=== PATIENT | female | born 1970 | race Two or more races ===

== ENCOUNTER 2019-07-02 12:59 | Inpatient (IN) | payer MEDICARE ==
[~2019-07-02] VITALS: Ht 162.6 cm; Wt 72.6 kg
--- NOTE | 2019-07-02 17:00 | NUR ---
Dr. Sanchez and Dr. Mensah notifed of admission
[2019-07-02] MEDS ORDERED: BLOOD SUGAR DIAGNOSTIC 1 EACH STRIP IN ONE (17:30)
[2019-07-02] MEDS ORDERED: MAGNESIUM HYDROXIDE 30 ML UDC PO PRN (17:30)
[2019-07-02] MEDS ORDERED: MAG HYDROX/AL HYDROX/SIMETH 30 ML UDC PO PRN (17:30)
[2019-07-02] MEDS ORDERED: ACETAMINOPHEN 325 MG TABLET PO PRN (17:30)
[2019-07-02] MEDS ORDERED: QUET400T PO (17:51)
[2019-07-02] MEDS ORDERED: DIVA500T2 GT (17:51)
[2019-07-02] MEDS ORDERED: CLON1TAB PO (17:51)
[2019-07-02] MEDS ORDERED: BENZ2AMP3 PO (17:51)
[2019-07-02] MEDS ORDERED: LISI10TA5 PO (17:51)
[2019-07-02] MEDS ORDERED: ARIP30TA3 PO (17:51)
[2019-07-02] MEDS ORDERED: LITH600C PO (17:51)
[2019-07-02] MEDS ORDERED: CARB-93 PO (17:51)
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
[2019-07-02 20:50] VITALS: BP 114/55
[2019-07-03 07:30] LABS: ALBUMIN 3.5 g/dL (3.4-5.0); BILIRUBIN,TOTAL 0.2 mg/dL (0.2-1.0); CALCIUM, SERUM 8.6 mg/dL (8.5-10.1); CHOLESTEROL 162 mg/dL (<200); CREATININE 0.6 mg/dL (0.6-1.3); HDL CHOLESTEROL 62 mg/dL (40-60); LDL 77 mg/dL (0-99); TOTAL PROTEIN, SERUM 6.9 g/dL (6.4-8.2); TRIGLYCERIDES 178 mg/dL (30-150)
[2019-07-03 08:00] VITALS: BP 146/82
[2019-07-03] MEDS: CARBIDOPA/LEVODOPA 25/100 MG 1 UDTAB PO SCH ×3 (08:05→16:27)
[2019-07-03] MEDS: LISINOPRIL (10MG) 10 MG TABLET PO SCH (08:06)
[2019-07-03] MEDS: DIVALPROEX SODIUM 250 MG TABLET.DR PO SCH ×2 (12:29→21:39)
[2019-07-03] MEDS: OLANZAPINE 5 MG/TAB.RAPDIS PO SCH ×2 (12:29→21:37)
[2019-07-03 16:00] VITALS: BP 117/65
--- NOTE | 2019-07-03 19:08 | NUR ---
GPS/RN NOTE: RESTING IN BED, CALM, QUIET, COOPERATIVE. DENIES ANY PAIN AT THIS TIME. NO ACUTE DISTRES NOTED. FALL RISK MEASURES MAINTAINED, MOSTLY INDEPENDENT WITH ADL'S. CONTINUE TO MONITOR.
--- NOTE | 2019-07-03 19:52 | NUR ---
GPS/RN NOTE: URINE SAMPLE COLLECTED FOR TEST, LAB WAS NOTIFIED.
[2019-07-03 20:28] VITALS: BP 138/89
[2019-07-03] MEDS: GEMFIBROZIL 600 MG TABLET PO SCH (21:37)
[2019-07-04] MEDS: TEMAZEPAM 7.5 MG CAPSULE PO PRN ×2 (03:06→22:13)
--- NOTE | 2019-07-04 03:06 | NUR ---
GPS/RN NOTE: AWAKE AND NOT SLEEPING, OFFERED SLEEPING PILL EARLIER BUT REFUSED. TEMAZEPAM 7.5 MG CAP PO GIVEN.
--- NOTE | 2019-07-04 03:28 | NUR ---
GPS/RN NOTE: CHECKED URINE TEST FOR , STILL PENDING.
--- NOTE | 2019-07-04 07:30 | NUR ---
Opening PATIENT IS A 49 YEAR OLD FEMALE ON A 5150 HOLD FOR DTO, DTS AND GD. Pt CURRENTLY WONDERING HALLS UP AND BACK TO NURSES STATION. PT ASKING TO TAKE A SHOWER FOR SELF CARE IN [facility]. ON FACE TO FACE ASSESSMENT PATIENT IS AOX2 FOR SELF AND TIME. PATIENT DENIES SI/HI AND VAH. PATIENT IS CALM AND COOPERATIVE WITH STAFF. PATIENT IS DISORIENTED AND FORGETFUL. PNO SIGNS OF DISTRESS. RISSA CONTINUE TO MONITOR.
[2019-07-04] MEDS: LORAZEPAM 0.5 MG TABLET PO PRN (07:44)
[2019-07-04] MEDS: DIVALPROEX SODIUM 250 MG TABLET.DR PO SCH ×3 (07:45→22:09)
[2019-07-04] MEDS: GEMFIBROZIL 600 MG TABLET PO SCH ×2 (07:45→20:40)
[2019-07-04] MEDS: CARBIDOPA/LEVODOPA 25/100 MG 1 UDTAB PO SCH ×3 (07:45→17:17)
[2019-07-04] MEDS: OLANZAPINE 5 MG/TAB.RAPDIS PO SCH ×2 (07:45→20:40)
[2019-07-04] MEDS: LISINOPRIL (10MG) 10 MG TABLET PO SCH (07:46)
[2019-07-04 08:00] VITALS: BP 141/74
[2019-07-04] MEDS ORDERED: OLANZAPINE 10 MG VIAL IM ONE (12:30)
--- NOTE | 2019-07-04 12:32 | NUR ---
GPS/RN ZYPREXA 10MG IN ONCE ORDERED BY DR WANG FOR PT BEING AGGRESSIVE TOWARD NURSING STUFF.
--- NOTE | 2019-07-04 13:03 | NUR ---
hanane alva cna communicated to md packer im medication ordered and given.
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
--- NOTE | 2019-07-04 17:38 | NUR ---
Initial Discharge Plan: Pt currently resides with a friend of hers but the address is unknown. Pts Farrah robles ([phone]), stated that her address is available for the pt. SW will work with the pt and the MD regarding appropriate discharge planning. SW will form a safe and proper discharge.
--- NOTE | 2019-07-04 17:51 | NUR ---
CLOSING PT COOPERATIVE ALL SHIFT KEEP SAFE ALL MEDICATIONS GIVEN WILL GIVE REPORT TO PM SHIFT RN FOR CONTINUITY OF CARE
--- NOTE | 2019-07-04 20:06 | NUR ---
GPS/RN NOTE: AMBULATING AROUND THE UNIT, IN AND OUT OF HER ROOM, UNKEMPT, DISHEVELED, A/O X2, AMBULATORY/STEADY GAIT.LABILE, HYPERVERBAL.COOPERATIVE, MED COMPLIANT. WILL CONTINUE TO MONITOR PATIENT.
[2019-07-04 20:12] VITALS: BP 111/60
--- NOTE | 2019-07-04 22:13 | NUR ---
GPS/RN NOTE: RESTORIL 7.5 MG CAP PO GIVEN FOR SLEEP.
[2019-07-05] MEDS: LORAZEPAM 0.5 MG TABLET PO PRN (05:49)
--- NOTE | 2019-07-05 05:49 | NUR ---
GPS/RN NOTE: REQUESTED FOR ATIVAN FOR ANXIETY, ATIVAN 0.5 MG TAB PO GIVEN.
--- NOTE | 2019-07-05 06:50 | NUR ---
GPS/RN END OF SHIFT NOTE: SLEPT FOR 7 HOURS. A/O X2, NO AGITATION, NO HITTING AF ANY KIND. MED COMPLIANT. AMBULATORY. WILL CONTINUE TO MONITOR.
[2019-07-05 08:00] VITALS: BP 107/63
--- NOTE | 2019-07-05 08:42 | NUR ---
opening PATIENT IS A 49 YEAR OLD FEMALE ON A 5150 HOLD FOR DTO, DTS AND GD. Pt CURRENTLY WONDERING HALLS UP AND BACK TO NURSES STATION. PT ASKING TO TAKE A SHOWER FOR SELF CARE IN [facility]. ON FACE TO FACE ASSESSMENT PATIENT IS AOX2 FOR SELF AND TIME. PATIENT DENIES SI/HI PATIENT IS pacing around door way but COOPERATIVE WITH STAFF. PATIENT IS DISORIENTED AND FORGETFUL. SIGNS OF DISTRESS. RISSA CONTINUE TO MONITOR.
[2019-07-05] MEDS: GEMFIBROZIL 600 MG TABLET PO SCH ×2 (09:18→21:14)
[2019-07-05] MEDS: DIVALPROEX SODIUM 250 MG TABLET.DR PO SCH ×4 (09:18→21:14)
[2019-07-05] MEDS: CARBIDOPA/LEVODOPA 25/100 MG 1 UDTAB PO SCH ×3 (09:19→17:28)
[2019-07-05] MEDS: OLANZAPINE 5 MG/TAB.RAPDIS PO SCH ×2 (09:19→13:04)
[2019-07-05] MEDS: LISINOPRIL (10MG) 10 MG TABLET PO SCH (09:19)
[2019-07-05 16:00] VITALS: BP 100/65
[2019-07-05] MEDS: OLANZAPINE 10 MG TABLET PO SCH (17:28)
--- NOTE | 2019-07-05 17:46 | NUR ---
CLOSING PT COOPERATIVE ALL SHIFT KEEP SAFE ALL MEDICATIONS GIVEN WILL GIVE REPORT TO PM SHIFT RN FOR CONTINUITY OF CARE
[2019-07-05 20:19] VITALS: BP 105/66
[2019-07-06] MEDS: TEMAZEPAM 7.5 MG CAPSULE PO PRN (01:44)
[2019-07-06] MEDS: LORAZEPAM 0.5 MG TABLET PO PRN ×2 (05:13→17:02)
--- NOTE | 2019-07-06 05:15 | NUR ---
RN NOTES: PT. C/O FEELING ANXIOUS ATIVAN 0.5 MG PO PRN GIVEN PER PT. REQUEST,WILL CONTINUE TO MONITOR, / IN OMNICELL ATIVAN FOUND 19 QTY / BY LILLIE ENTER 1 , / NOTIFIED CHARGE NURSE AND CYCLE COUNT DONE ,RESLOVED DISCRAPENCY WITH MADONNA CHARGE NURSE
--- NOTE | 2019-07-06 07:37 | NUR ---
RN NOTES: PT. TOOK MEDS FOR 07 , HALODOL 5 MG , COGENTIN 1 MG, ENDORSE TO CHARGE NURSE, WILL CONTINUITY WITH CARE . Addendum: 07/06/19 at 0741 by KILO JENKINS RN WRONG PATIENT
[2019-07-06 08:00] VITALS: BP 135/79
[2019-07-06] MEDS: LISINOPRIL (10MG) 10 MG TABLET PO SCH (09:30)
[2019-07-06] MEDS: DIVALPROEX SODIUM 250 MG TABLET.DR PO SCH ×4 (09:30→21:09)
[2019-07-06] MEDS: OLANZAPINE 5 MG/TAB.RAPDIS PO SCH ×2 (09:30→13:51)
[2019-07-06] MEDS: GEMFIBROZIL 600 MG TABLET PO SCH ×2 (09:30→21:09)
[2019-07-06] MEDS: CARBIDOPA/LEVODOPA 25/100 MG 1 UDTAB PO SCH ×3 (09:30→17:02)
[2019-07-06 16:00] VITALS: BP 127/58
[2019-07-06] MEDS: OLANZAPINE 10 MG TABLET PO SCH (17:02)
[2019-07-06 20:00] VITALS: BP 108/65
--- NOTE | 2019-07-07 06:24 | NUR ---
RN NOTES: PT. REFUSED AM LABS ,ENCOURAGED X3 , PT. STRONGLY REFUSED, ENDORSE TO ON COMING RN, WILL CONTINUITY WITH CARE.
[2019-07-07 06:53] VITALS: BP 108/65
[2019-07-07] MEDS: LORAZEPAM 0.5 MG TABLET PO PRN ×2 (07:25→19:30)
[2019-07-07 08:00] VITALS: BP 124/70
--- NOTE | 2019-07-07 08:42 | NUR ---
FAMILY CONTACT: SW called the pts daughter, Farrah ([phone]) and left a voicemail for callback.
[2019-07-07] MEDS: OLANZAPINE 5 MG/TAB.RAPDIS PO SCH ×2 (09:03→12:33)
[2019-07-07] MEDS: LISINOPRIL (10MG) 10 MG TABLET PO SCH (09:03)
[2019-07-07] MEDS: CARBIDOPA/LEVODOPA 25/100 MG 1 UDTAB PO SCH ×3 (09:04→16:57)
[2019-07-07] MEDS: GEMFIBROZIL 600 MG TABLET PO SCH ×2 (09:04→21:17)
[2019-07-07] MEDS: DIVALPROEX SODIUM 250 MG TABLET.DR PO SCH ×4 (09:04→21:16)
--- NOTE | 2019-07-07 11:00 | NUR ---
gps anesthesiology faculty: notes pt still refuses blood drawn today x3.
--- NOTE | 2019-07-07 15:00 | NUR ---
GROUP NOTE: SW assessed pts ability to participate in group therapy on this present day discussing "discharge planing." Pt is unable to participate due to Cognitive Disorder. Pt is confused, disorganized, easily irritable, and agitated, and verbally aggressive. Pt unable to sit in a group setting and follow directions.
[2019-07-07 16:00] VITALS: BP 122/75
[2019-07-07] MEDS: OLANZAPINE 10 MG TABLET PO SCH (16:57)
[2019-07-07 20:25] VITALS: BP 118/71
[2019-07-08] MEDS: TEMAZEPAM 7.5 MG CAPSULE PO PRN ×2 (00:59→22:59)
[2019-07-08 08:00] VITALS: BP 108/64
[2019-07-08] MEDS: OLANZAPINE 5 MG/TAB.RAPDIS PO SCH ×2 (08:38→12:46)
[2019-07-08] MEDS: LISINOPRIL (10MG) 10 MG TABLET PO SCH (08:39)
[2019-07-08] MEDS: CARBIDOPA/LEVODOPA 25/100 MG 1 UDTAB PO SCH ×3 (08:39→16:47)
[2019-07-08] MEDS: DIVALPROEX SODIUM 250 MG TABLET.DR PO SCH ×4 (08:39→21:26)
[2019-07-08] MEDS: GEMFIBROZIL 600 MG TABLET PO SCH ×2 (08:39→21:27)
--- NOTE | 2019-07-08 08:41 | NUR ---
DEIDRE/RN NOTES MEDICATION LISINOPRIL WAS NOT GIVEN DUE TO LOW BP OF 105/64. PATIENT CONTINUES TO REMAIN IN STABLE CONDITION. WILL CONTINUE TO MONITOR CLOSELY.
--- NOTE | 2019-07-08 08:59 | NUR ---
FAMILY CONTACT: SW called the pts daughter, Farrah ([phone]) and left a voicemail for callback.
[2019-07-08 16:00] VITALS: BP 133/68
--- NOTE | 2019-07-08 16:08 | NUR ---
Group Note: SW encouraged pt to attend group therapy on 07/08/19 at 12pm discussing discharge planning. Pt was unable to participate in group therapy due to cognitive impairment. Pt appeared to be confused and verbally aggressive. Pt showed at the SW to "leave my room, let me be in here in peace!"
[2019-07-08] MEDS: OLANZAPINE 10 MG TABLET PO SCH (16:47)
--- NOTE | 2019-07-08 18:22 | NUR ---
GPS/RN CLOSING NOTES PATIENT CONTINUES TO REMAIN IN STABLE CONDITION THROUGHOUT THE SHIFT. PROVIDED COMFORT AND SAFETY AT ALL TIMES. COOPERATIVE WITH NO SUICIDAL IDEATION AT THIS TIME. ALL NEEDS ANTICIPATED. CALL LIGHT WITHIN REACHED. BED LOCKED AND IN LOWEST POSITION. WILL CONTINUE TO MONITOR CLOSELY. ENDORSED TO PM NURSE FOR CISCO.
[2019-07-09] MEDS: DIVALPROEX SODIUM 250 MG TABLET.DR PO SCH ×4 (08:13→21:17)
[2019-07-09] MEDS: CARBIDOPA/LEVODOPA 25/100 MG 1 UDTAB PO SCH ×3 (08:13→16:46)
[2019-07-09] MEDS: OLANZAPINE 5 MG/TAB.RAPDIS PO SCH ×2 (08:13→12:42)
[2019-07-09] MEDS: GEMFIBROZIL 600 MG TABLET PO SCH ×2 (08:13→21:17)
[2019-07-09] MEDS: LISINOPRIL (10MG) 10 MG TABLET PO SCH (08:14)
--- NOTE | 2019-07-09 09:03 | NUR ---
SNF REFERRAL: MIS faxed SNF referral to Aishwarya business office coordinator at [facility] Address: [address], [place] [address] for review.
--- NOTE | 2019-07-09 09:05 | NUR ---
FAMILY CONTACT: SW called the pts daughter, Farrah ([phone]) and left a voicemail informing her SW has faxed SNF referral to [facility] and has anticipated discharge date for Sunday07/11/19.
--- NOTE | 2019-07-09 11:20 | NUR ---
SNF; SW received a call from from Aishwarya, complaints coordinator at [facility] Address: [address], [place] [address] stating pt has been accepted to the facility.
[2019-07-09] MEDS: LORAZEPAM 0.5 MG TABLET PO PRN ×2 (15:25→22:45)
--- NOTE | 2019-07-09 15:29 | NUR ---
RN NOTE- PT W ANXIETY. ATIVAN PRN GIVEN AT THIS TIME.
--- NOTE | 2019-07-09 15:45 | NUR ---
GROUP NOTE: SW assessed pts ability to participate in group therapy on this present day discussing "reality testing" Pt is unable to participate due to Cognitive Disorder/psychosis. Pt is confused, disorganized, easily irritable, and agitated. Pt unable to sit in a group setting and follow directions. Pt is pacing the hallway and not easily redirected.
--- NOTE | 2019-07-09 16:30 | NUR ---
RN NOTE- PT W FLAKING, ITCHING SCALP. SEBORRHEA - APPEARING SPOTS TO SCALP. PT STATES ITCHING AND FLAKING. DR GUTIERREZ ORDERED SELENIUM SHAMPOO. COMPLYING.
[2019-07-09] MEDS: OLANZAPINE 10 MG TABLET PO SCH (16:46)
[2019-07-09] MEDS ORDERED: MISCELLANEOUS MED 1 EA EA XX ONE (17:00)
[2019-07-09 20:14] VITALS: BP 104/71
--- NOTE | 2019-07-09 22:47 | NUR ---
GPS RN NOTE PRN ATIVAN 0.5 MG TABLET GIVEN FOR ANXIETY M/B INABILITY TO STAY STILL. WILL CONT. TO MONITOR.
--- NOTE | 2019-07-10 06:56 | NUR ---
GPS RN NOTE PATIENT REFUSED AM LABS DESPITE OF RISKS & BENEFIT EXPLANATIONS, CONTINUED TO REFUSE.
[2019-07-10] MEDS: OLANZAPINE 5 MG/TAB.RAPDIS PO SCH ×2 (08:18→13:16)
[2019-07-10] MEDS: LORAZEPAM 0.5 MG TABLET PO PRN (08:18)
[2019-07-10] MEDS: DIVALPROEX SODIUM 250 MG TABLET.DR PO SCH ×4 (08:18→21:01)
[2019-07-10] MEDS: CARBIDOPA/LEVODOPA 25/100 MG 1 UDTAB PO SCH ×3 (08:18→17:01)
[2019-07-10] MEDS: GEMFIBROZIL 600 MG TABLET PO SCH ×2 (08:19→21:00)
[2019-07-10] MEDS: LISINOPRIL (10MG) 10 MG TABLET PO SCH (08:26)
--- NOTE | 2019-07-10 08:35 | NUR ---
FAMILY CONTACT: SW called the pts daughter, Farrah ([phone]) and left a voicemail cor callback.
--- NOTE | 2019-07-10 08:35 | NUR ---
FAMILY CONTACT: SW received a call from pts daughter, Farrah ([phone]) stating she is pts LPS conservator. SW requested daughter fax conservatorship documents along with the Detain and Treat. Daughter stated that she will email SW the letter of conservatorship. Daughter also asked SW if pt can be placed in a SNF closer to [place] where daughter lives. SW will refer pt to SNF's around her area.
--- NOTE | 2019-07-10 09:10 | NUR ---
LPS CONSERVATORSHIP: SW received letter of conservatorship and SW emailed Detail and Treat to daughter so she can sign and email back.
--- NOTE | 2019-07-10 09:17 | NUR ---
SNF REFERRAL: MIS faxed SNF referral to [facility] Address: [address] [place] [phone] for review.
[2019-07-10] MEDS: SELENIUM SULFIDE TP SCH (13:00)
[2019-07-10 16:00] VITALS: BP 109/73
--- NOTE | 2019-07-10 16:01 | NUR ---
Group Note: SW encouraged pt to attend group therapy on 07/10/19 at 2pm discussing social supports. Pt presented in the hallway pacing and was singing to herself. Pt stated that she did not want to participate in group and stated, "Gisele I just want to sing."
[2019-07-10] MEDS: OLANZAPINE 10 MG TABLET PO SCH (17:01)
[2019-07-10 20:00] VITALS: BP 118/77
[2019-07-10] MEDS: TEMAZEPAM 7.5 MG CAPSULE PO PRN (22:13)
[2019-07-11 08:00] VITALS: BP 100/77
--- NOTE | 2019-07-11 08:30 | NUR ---
SNF CONTACT: SW received a call from corey Gutierrez at [facility] Address: [address] [place] [id number] stating pt has been accepted and has been assigned to room 4B.
[2019-07-11] MEDS: GEMFIBROZIL 600 MG TABLET PO SCH (08:35)
[2019-07-11] MEDS: CARBIDOPA/LEVODOPA 25/100 MG 1 UDTAB PO SCH ×3 (08:36→17:29)
[2019-07-11] MEDS: DIVALPROEX SODIUM 250 MG TABLET.DR PO SCH ×3 (08:36→17:29)
[2019-07-11] MEDS: LORAZEPAM 0.5 MG TABLET PO PRN (08:40)
--- NOTE | 2019-07-11 08:45 | NUR ---
FAMILY CONTACT: SW emailed pts daughter, Farrah ([phone]) to inform her pt has been accepted to [facility] Address: [address] [place] [phone] and will be discharged on this present day. Daughter emailed MIS Detain and Treat and also agreed with discharge plan.
[2019-07-11] MEDS: SELENIUM SULFIDE TP SCH (09:00)
[2019-07-11] MEDS: LISINOPRIL (10MG) 10 MG TABLET PO SCH (09:00)
[2019-07-11] MEDS: OLANZAPINE 5 MG/TAB.RAPDIS PO SCH ×2 (10:24→12:10)
--- NOTE | 2019-07-11 10:43 | NUR ---
DISCHARGE NOTE: Pt will be discharged at 1:30pm via [facility] to [facility] Address: [address] [place] [address] . Pts daughter Farrah ([phone]) has been notified and agrees with discharge plan. Pts mood is labile with congruent affect. Pt denied visual/auditory hallucinations and denied suicidal/homicidal ideation. Pt will be under the care of Psychiatrist: Dr. Sanchez Address: [address] [place] [address] and Filing Or Registry Clerk: Dr Guerrero Address: [address] [address] . The multidisciplinary exit care form was done, printed, signed, and given to the patient.
[2019-07-11 11:32] LABS: BASOPHILS % (AUTO) 0.4 % (0.0-2.0); EOSINOPHILS % (AUTO) 1.2 % (0.0-6.0); HEMATOCRIT 30 % (33-45); LYMPHOCYTES # (AUTO) 3.4 /CMM (0.8-4.8); LYMPHOCYTES % (AUTO) 52.2 % (20.0-44.0); MEAN CORPUSCULAR HGB CONC 33 g/dl (31.0-36.0); MEAN CORPUSCULAR VOLUME 93 fL (82-100); MONOCYTES # (AUTO) 0.5 /CMM (0.1-1.30); MONOCYTES % (AUTO) 7.4 % (2.0-12.0); NEUTROPHILS # (AUTO) 2.5 /CMM (1.8-8.9); NEUTROPHILS % (AUTO) 38.8 % (43.0-81.0); PLATELET COUNT (AUTO) 273 /CMM (150-450); RED BLOOD CELL COUNT(AUTO) 3.25 MIL/uL (4.0-5.2); WHITE BLOOD COUNT (AUTO) 6.5 K/uL (4.3-11.0)
[2019-07-11 11:48] LABS: ALBUMIN 3.4 g/dL (3.4-5.0); BILIRUBIN,TOTAL 0.2 mg/dL (0.2-1.0); CALCIUM, SERUM 8.4 mg/dL (8.5-10.1); CREATININE 0.7 mg/dL (0.6-1.3); TOTAL PROTEIN, SERUM 6.8 g/dL (6.4-8.2)
--- NOTE | 2019-07-11 14:30 | NUR ---
GPS/RN REPORT GIVEN TO ACCEPTING FACILITY CATHI TNOG [phone] /MELLISSA VASQUEZN
--- NOTE | 2019-07-11 14:33 | NUR ---
RN NOTE- CARE TRANSFERRED TO LETTERSET PRESS SET UP OPERATOR
[2019-07-11 16:00] VITALS: BP 108/76
[2019-07-11] MEDS: OLANZAPINE 10 MG TABLET PO SCH (17:29)
--- NOTE | 2019-07-11 18:50 | NUR ---
RN NOTE- PT DC AT THIS TIME VIA AMBULANCE TO [facility]. PT VS STABLE, DENIES SI HI AH VH AT TIME OF DC. CALM DIRECTABLE. IN NO DISTRESS. VALUABLES GIVEN TO PT, ID BAND REMOVED,. ESCORTED OFF UNIT.
== END 2019-07-11 18:50 | DRG 885 ==
LOC: GPS 16:17
PROVIDERS: ADMIT Psychiatry & Neurology Psychiatry; ATTEND Student in an Organized Health Care Education/Training Program
DX: F25.0 Schizoaffective disorder, bipolar type (principal); F23 Brief psychotic disorder; E11.9 Type 2 diabetes mellitus without complications; E03.9 Hypothyroidism, unspecified; F17.210 Nicotine dependence, cigarettes, uncomplicated; I10 Essential (primary) hypertension; G20 Parkinson's disease; E78.1 Pure hyperglyceridemia; F09 Unspecified mental disorder due to known physiological condition; Z88.0 Allergy status to penicillin; D64.9 Anemia, unspecified; Z91.19 Patient's noncompliance with other medical treatment and regimen
CPT/HCPCS: 36415; 80053-TC; 80061-TC; 80164-TC; 82962-TC; 84443-TC; 84703-TC; 85025-TC; J3490

== ENCOUNTER 2019-07-30 14:44 | Inpatient (IN) | payer MEDICARE ==
[~2019-07-30] VITALS: Ht 162.6 cm; Wt 62.6 kg
[~2019-07-30 14:44] MED LIST: ARIP30TA3 PO; BENZ2AMP3 PO; CARB-93 PO; CLON1TAB PO; DIVA500T2 GT; LISI10TA5 PO; LITH600C PO; QUET400T PO
[2019-07-30] MEDS ORDERED: BENZ2AMP3 PO (15:49)
[2019-07-30] MEDS ORDERED: CARB-93 PO (15:49)
[2019-07-30] MEDS ORDERED: OLAN10TA3 PO (15:49)
[2019-07-30] MEDS ORDERED: LISI10TA5 PO (15:49)
[2019-07-30] MEDS ORDERED: MAG30ORA PO (15:49)
[2019-07-30] MEDS ORDERED: MAGN400O6 PO (15:49)
[2019-07-30] MEDS ORDERED: LORA-259 PO (15:49)
[2019-07-30] MEDS ORDERED: ACET-868 PO (15:49)
[2019-07-30] MEDS ORDERED: MAG HYDROX/AL HYDROX/SIMETH 30 ML UDC PO PRN ×2 (16:30→18:00)
[2019-07-30] MEDS ORDERED: MAGNESIUM HYDROXIDE 30 ML UDC PO PRN ×2 (16:30→18:00)
[2019-07-30] MEDS ORDERED: BLOOD SUGAR DIAGNOSTIC 1 EACH STRIP IN ONE (16:30)
[2019-07-30] MEDS: LORAZEPAM 0.5 MG TABLET PO PRN (16:40)
--- NOTE | 2019-07-30 16:40 | NUR ---
PATIENT AGITATED. PRN ATIVAN PO GIVEN.
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
[2019-07-30] MEDS ORDERED: ACETAMINOPHEN 325 MG TABLET PO PRN (18:00)
--- NOTE | 2019-07-31 01:08 | NUR ---
GPS RN NOTE PATIENT REQUESTED TO GET SLEEPING PILL X 2 ALREADY BUT EVERY TIME RN IS READY TO GIVE RESTORIL 7.5 MG, PATIENT REFUSES TO TAKE IT STATING, " IT'S NOT MY MEDICINE, I DO NOT TAKE THIS." DESPITE OF EXPLANATIONS, PT CONTINUED TO REFUSE TO TAKE RESTORIL FOR SLEEPLESSNESS, PT. IS REDIRECTABLE AT THIS TIME & WENT BACK TO BED TO TRY TO GO TO SLEEP. WILL CONTINUE TO MONITOR FOR SAFETY & BEHAVIOR.
--- NOTE | 2019-07-31 02:22 | NUR ---
GPS RN NOTE PATIENT IS QUIETLY WALKING AROUND, RELAXED, CALM, PER PATIENT SHE IS UNABLE TO SLEEP BUT CONTINUING TO REFUSE SLEEPING MEDICINE AT THIS TIME. OFFERED RESTORIL MULTIPLE TIMES BUT PT. REFUSED EVERY TIME OFFERED SLEEPING MEDICINE. WILL CONTINUE TO MONITOR CLOSELY FOR SAFETY & BEHAVIOR.
--- NOTE | 2019-07-31 05:46 | NUR ---
GPS RN NOTE PATIENT SLEPT INTERMITTENTLY FOR ABOUT 4 HOURS AT NIGHT, CONTINUED REFUSING SLEEPING MEDICINE, CALM & RELAXED AT THIS TIME, HAS PARANOID IDEATIONS AT TIMES, REDIRECTABLE. WILL CONTINUE TO MONITOR Q15 MINS. FOR SAFETY & BEHAVIOR.
[2019-07-31 05:50] VITALS: BP 133/79
--- NOTE | 2019-07-31 06:26 | NUR ---
REFUSED AM LABS PATIENT REFUSED AM LABS, EASILY AGITATED AT THIS TIME, ANXIOUS. GAVE HER SPACE & LAB WILL RETRY TO DRAW BLOOD FOR AM LABS.
[2019-07-31] MEDS: LISINOPRIL (10MG) 10 MG TABLET PO SCH (08:26)
[2019-07-31] MEDS: CARBIDOPA/LEVODOPA 25/100 MG 1 UDTAB PO SCH ×3 (08:26→17:00)
--- NOTE | 2019-07-31 08:26 | NUR ---
GPS/RN PT REFUSED VS CHECKED AND REFUSED AM MEDS OFFERED X3.
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
[2019-07-31] MEDS ORDERED: OLANZAPINE 10 MG VIAL IM ONE (13:00)
[2019-07-31] MEDS ORDERED: LORAZEPAM INJ 2 MG/ML VIAL IM ONE (13:00)
[2019-07-31] MEDS: DIVALPROEX SODIUM 125 MG CAP.SPRINK PO SCH ×2 (14:30→17:00)
[2019-07-31] MEDS: OLANZAPINE 5 MG/TAB.RAPDIS PO SCH (17:00)
[2019-07-31 20:23] VITALS: BP 112/86
[2019-07-31] MEDS: LORAZEPAM 0.5 MG TABLET PO PRN (21:22)
--- NOTE | 2019-08-01 07:24 | NUR ---
INITIAL PT RESTING IN BED ALARMS ON RESPIRATIONS EVEN WITH OUT DISTRESS PT CALM PRESENTLY WILL CONTINUE TO MONITOR.
[2019-08-01 08:00] VITALS: BP 116/56
[2019-08-01] MEDS: OLANZAPINE 5 MG/TAB.RAPDIS PO SCH ×3 (08:19→13:19)
[2019-08-01] MEDS: CARBIDOPA/LEVODOPA 25/100 MG 1 UDTAB PO SCH ×3 (08:19→17:05)
[2019-08-01] MEDS: DIVALPROEX SODIUM 125 MG CAP.SPRINK PO SCH ×3 (08:19→13:18)
[2019-08-01] MEDS: LISINOPRIL (10MG) 10 MG TABLET PO SCH (08:27)
[2019-08-01 08:28] VITALS: BP 116/56
--- NOTE | 2019-08-01 08:38 | NUR ---
FAMILY CONTACT: SW emailed pts daughter/LPS Conservator Farrah ([email or web address]) and requested Detain and Treat.
--- NOTE | 2019-08-01 09:02 | NUR ---
PUBLIC GUARDIAN OFFICE: SW contacted the Public Guardian's Office [phone] and spoke with the [place] on Duty for UNit [address] [place] who stated that pt is not under Public Guardianship as stated on the 5150 hold.
--- NOTE | 2019-08-01 09:50 | NUR ---
FACILITY CONTACT: SW received a call from Aishwarya, outpatient program coordinator at [facility] Address: [address], [place] [address] stating that pt was discharged from their facility before being transferred to the hospital but are wishing to take her back once stable for discharge. MIS informed him that she will discuss discharge plan with daughter and update him.
--- NOTE | 2019-08-01 10:14 | NUR ---
FAMILY CONTACT: MIS received an email from pts daughter/LPS Conservator Farrah ([email or web address]): "She is back at [place]? I was not advised. Earlier this week was she was at [facility] and she called an ambulance from their dinning room so they came for her and she was once again sent to be evaluated. I don't know why she keeps being transferred and then sent out to be evaluated. I was told she was to stay at [facility] for at least 3 months. I don't think Correction facilities are right for her. She needs to be in a psychiatric hospital where they can actually handle her behavior, instead of sending her out when she starts to act out. I am desperate Stacia. I know it isnt your problem or your job but I don't know what else to do. I've tried to call a list of [facility] psychiatric facilities and they all tell me I can't admit her, that she needs to be admitted through the [facility]. So when I call [facility] school social worker, she tells me I'm the one that needs to admit her because I am her conservator and should be responsible for her. It seems like no one has been able to help or point me in the right direction. Is there any way you can refer her to a psychiatric hospital for terminal operator treatment? And one that is close to [place], because we like to visit her at least once a week and it would be difficult if she was far away. I'm sorry for making this your problem I just don't know what else to do. And I'm sorry for emailing, I am at work right now" MIS responded informing her that she will consult with director aeronautics commission to see what MIS can do to help.
--- NOTE | 2019-08-01 10:27 | NUR ---
FAMILY CONTACT: MIS contacted pts daughter Farrah [phone] to discuss her concerns with pts discharge plan. MIS left a voicemail informing her that unfortunately SW is unable to assist with transferring pt to an [facility] hospital as there is a very long waiting list. MIS recommended she take pt to [facility] to see if they are willing to accept pt but also stated that there might also be a long waiting list of several years if pt is accepted. MIS informed her that [facility] is willing to take pt back and also advised her to inform them that for future transfers she does not authorize or approved hospital transfers. MIS also informed her that there aren't and SNF's in [facility] that will accept psych pts. IMS requested a callback to further discuss pts discharge plan.
--- NOTE | 2019-08-01 10:58 | NUR ---
FAMILY CONTACT: SW contacted pts daughter Farrah [phone] to discuss pts discharge plan. Daughter understood that SW is unable to assist with transferring pt to an [facility] hospital and agreed with discharge to [facility]. SW also requested Detain and Treat and LPS Conservatorship paperwork, Daughter stated she will email paperwork later this evening.
[2019-08-01] MEDS: DIVALPROEX SODIUM 500 MG TABLET.DR PO SCH (17:10)
--- NOTE | 2019-08-01 17:40 | NUR ---
CLOSING PT KEPT SAFE ALL SHIFT BED ALARMS ON GIVEN ALL MEDICATIONS WILL GIVEN RN REPORT TO PM SHIFT FOR CONTINUITY OF CARE
--- NOTE | 2019-08-01 17:53 | NUR ---
BEHAVIOR SEVERAL ATTEMPTS BY PREFLIGHT MECHANIC AND RN TO TAKE VITAL SIGNS EXPLAIN NEED FOR PROCEDURE PT YELLED AND INSERTED MIDDLE FINGER OF LEFT HAND IN AIR TO RN.
--- NOTE | 2019-08-01 20:40 | NUR ---
GPS/RN NOTE: PATIENT ASLEEP, SNORING A LITTLE LOUD, NO APPARENT DSITRESS NOTED.
[2019-08-01] MEDS: OLANZAPINE 10 MG TABLET PO SCH (21:11)
[2019-08-02] MEDS: TEMAZEPAM 7.5 MG CAPSULE PO PRN (01:48)
--- NOTE | 2019-08-02 01:48 | NUR ---
GPS/RN NOTE: MILK OF MAG 30 ML PO GIVEN FOR CONSTIPATION. TEMAZEPAM 7.5 MG CAP PO GIVEN FOR SLEEP.
[2019-08-02] MEDS: DIVALPROEX SODIUM 125 MG CAP.SPRINK PO SCH ×3 (08:00→13:06)
[2019-08-02] MEDS: OLANZAPINE 5 MG/TAB.RAPDIS PO SCH ×3 (08:00→13:07)
[2019-08-02] MEDS: LISINOPRIL (10MG) 10 MG TABLET PO SCH (08:54)
[2019-08-02] MEDS: CARBIDOPA/LEVODOPA 25/100 MG 1 UDTAB PO SCH ×5 (08:54→17:08)
--- NOTE | 2019-08-02 09:57 | NUR ---
PATIENT TOOK AM MEDS AT 0957. ADMINISTERED LATE BECAUSE PT AT FIRST REFUSED ALL MEDS. REQUESTED MEDS NOW. LISINOPRIL HELD BECAUSE REFUSED VITAL SIGN ASSESSMENT
[2019-08-02] MEDS: DIVALPROEX SODIUM 500 MG TABLET.DR PO SCH ×2 (17:00→17:08)
--- NOTE | 2019-08-02 17:55 | NUR ---
DESPITE MULTIPLE ATTEMPTS AND EDUCATION PATIENT REFUSED 1700 MEDICATION STATING THAT IT DOES NOT BELONG TO HER.
[2019-08-02 20:40] VITALS: BP 112/67
[2019-08-02] MEDS: OLANZAPINE 10 MG TABLET PO SCH (21:35)
--- NOTE | 2019-08-03 08:00 | NUR ---
GPS RN NOTES Patient refused vital signs. Explained procedure. Patient still refused. Patient in stable condition and ambulatory. Will continue to monitor.
[2019-08-03] MEDS: LISINOPRIL (10MG) 10 MG TABLET PO SCH (09:00)
[2019-08-03] MEDS: CARBIDOPA/LEVODOPA 25/100 MG 1 UDTAB PO SCH ×3 (09:01→16:36)
[2019-08-03] MEDS: DIVALPROEX SODIUM 125 MG CAP.SPRINK PO SCH ×2 (09:01→13:38)
[2019-08-03] MEDS: OLANZAPINE 5 MG/TAB.RAPDIS PO SCH ×2 (09:01→13:39)
[2019-08-03] MEDS: LORAZEPAM 0.5 MG TABLET PO PRN (10:41)
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
[2019-08-03] MEDS ORDERED: LORAZEPAM 1 MG TABLET PO ONE (15:30)
--- NOTE | 2019-08-03 16:00 | NUR ---
GPS RN NOTES Patient refused vital signs. Explained procedure. Patient still refused. Patient in stable condition and ambulatory. Will continue to monitor.
[2019-08-03] MEDS: DIVALPROEX SODIUM 500 MG TABLET.DR PO SCH (16:36)
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
[2019-08-03] MEDS ORDERED: HALOPERIDOL LACTATE INJ 5 MG/ML VIAL IM STA (18:01)
[2019-08-03] MEDS ORDERED: diphenhydrAMINE HCL 50 MG/ML VIAL IM STA (18:01)
[2019-08-03] MEDS ORDERED: HALOPERIDOL LACTATE INJ 5 MG/ML VIAL IM ONE (18:30)
--- NOTE | 2019-08-03 20:25 | NUR ---
GPS RN NOTE: PATIENT REFUSED V/S, EXPLAINED THE RISK AND BENEFITS X 3 ATTEMPTS, PATIENT STILL REFUSED. WILL CONTINUE TO MONITOR [id number] FOR SAFETY
[2019-08-03] MEDS: TEMAZEPAM 7.5 MG CAPSULE PO PRN (21:16)
[2019-08-03] MEDS: OLANZAPINE 10 MG TABLET PO SCH (21:16)
[2019-08-04 08:00] VITALS: BP 113/67
[2019-08-04] MEDS: OLANZAPINE 5 MG/TAB.RAPDIS PO SCH ×2 (08:36→12:08)
[2019-08-04] MEDS: DIVALPROEX SODIUM 125 MG CAP.SPRINK PO SCH ×2 (08:36→12:08)
[2019-08-04] MEDS: LISINOPRIL (10MG) 10 MG TABLET PO SCH (08:37)
[2019-08-04] MEDS: CARBIDOPA/LEVODOPA 25/100 MG 1 UDTAB PO SCH ×3 (08:38→17:21)
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
[2019-08-04] MEDS ORDERED: diphenhydrAMINE HCL 50 MG/ML VIAL IM STA (10:16)
[2019-08-04] MEDS ORDERED: LORAZEPAM INJ 2 MG/ML VIAL IM STA (10:16)
[2019-08-04] MEDS ORDERED: HALOPERIDOL LACTATE INJ 5 MG/ML VIAL IM STA (10:16)
--- NOTE | 2019-08-04 15:27 | NUR ---
Group Note: SW encouraged pt to participate in group therapy on 08/05/19 at 2pm to discuss "social supports." Pt is not appropriate for group at this time as pt is verbally aggressive and inappropriate and unable to be in a group setting and follow directions. Pt stated that she has a daughter that is involved in her care and makes decisions for her.
[2019-08-04] MEDS: DIVALPROEX SODIUM 500 MG TABLET.DR PO SCH (17:00)
[2019-08-04] MEDS: LORAZEPAM 0.5 MG TABLET PO PRN (17:21)
[2019-08-04 19:59] VITALS: BP 118/58
[2019-08-04] MEDS: OLANZAPINE 10 MG TABLET PO SCH ×2 (21:35→22:00)
--- NOTE | 2019-08-04 23:00 | NUR ---
gps rn note: Patient refused zyprexa, explained the risk and benefits x 3 attempts, patient stated that too much of medication and i dont like it". Will continue to monitor q15 mins for safety
[2019-08-05] MEDS: ACETAMINOPHEN 325 MG TABLET PO PRN (04:45)
[2019-08-05] MEDS: LORAZEPAM 0.5 MG TABLET PO PRN (07:20)
--- NOTE | 2019-08-05 07:20 | NUR ---
RN NOTE- PT W AGITATION. ATIVAN 0.5 MG GIVEN
[2019-08-05 08:00] VITALS: BP 113/66
[2019-08-05] MEDS: CARBIDOPA/LEVODOPA 25/100 MG 1 UDTAB PO SCH ×3 (08:19→16:57)
[2019-08-05] MEDS: LISINOPRIL (10MG) 10 MG TABLET PO SCH (08:19)
[2019-08-05] MEDS: DIVALPROEX SODIUM 125 MG CAP.SPRINK PO SCH ×2 (08:19→13:58)
[2019-08-05] MEDS: OLANZAPINE 5 MG/TAB.RAPDIS PO SCH ×3 (08:19→16:57)
[2019-08-05] MEDS ORDERED: HALOPERIDOL DECANOATE IM 100 MG/ML AMPUL IM ONE (12:00)
--- NOTE | 2019-08-05 14:49 | NUR ---
GROUP NOTE: SW encouraged pt to participate in group therapy on this present day to discuss "discharge planning." Pt is not appropriate for group at this time as pt is verbally aggressive and inappropriate and unable to be in a group setting and follow directions.
[2019-08-05 16:00] VITALS: BP 152/84
[2019-08-05] MEDS: DIVALPROEX SODIUM 500 MG TABLET.DR PO SCH (16:57)
[2019-08-05 20:00] VITALS: BP 119/67
[2019-08-05 20:15] VITALS: BP 110/67
--- NOTE | 2019-08-06 00:19 | NUR ---
GPS RN NOTE PATIENT HAS BEEN SLEEPING WELL SINCE 2029. NO BEHAVIOR EPISODE NOTED. WILL CONTINUE TO MONITOR FOR NEED OF ANY PRN MEDICINES. CONTINUING Q15 MINS. SAFETY CHECKS.
--- NOTE | 2019-08-06 06:32 | NUR ---
REFUSED AM LABS PT. REFUSED AM LABS DESPITE OF RISKS & BENEFITS EXPLANATIONS. BICYCLE INSPECTOR SAID, THEY WILL TRY AGAIN LATER TO DRAW BLOOD.
[2019-08-06 08:00] VITALS: BP 92/57
[2019-08-06] MEDS: DIVALPROEX SODIUM 125 MG CAP.SPRINK PO SCH ×3 (08:00→13:00)
[2019-08-06] MEDS: LISINOPRIL (10MG) 10 MG TABLET PO SCH (08:36)
[2019-08-06] MEDS: CARBIDOPA/LEVODOPA 25/100 MG 1 UDTAB PO SCH ×4 (08:36→17:00)
[2019-08-06] MEDS: OLANZAPINE 5 MG/TAB.RAPDIS PO SCH ×4 (08:36→17:00)
--- NOTE | 2019-08-06 08:46 | NUR ---
gps rn note: patient refused 08 medication stating that she is not sick and does not need it. Despite multiple attempts and education patient continues to refuse and is becoming irritable. Will attempt medication administration again for 0900 medications. will continue to monitor. Addendum: 08/06/19 at 09 by RAPHAEL FREEMAN RN PATIENT CAME UP TO RN AT 919 REQUESTING ALL MEDICATION. ADMINISTERED SUCCESSFULLY.
--- NOTE | 2019-08-06 13:50 | NUR ---
DESPITE MULTIPLE ATTEMPTS AND EXPLANATIONS OF RISKS AND BENEFITS PATIENT REFUSED 1300 MEDICATIONS STATING SHE DOES NOT NEED THEM. Addendum: 08/06/19 at 1757 by RAPHAEL FREEMAN RN PATIENT REFUSED 1700 MEDICATIONS
[2019-08-06] MEDS: DIVALPROEX SODIUM 500 MG TABLET.DR PO SCH (17:00)
[2019-08-06 20:00] VITALS: BP 120/65
[2019-08-06 20:41] VITALS: BP 120/65
--- NOTE | 2019-08-07 01:54 | NUR ---
GPS RN NOTE PATIENT HAS BEEN AWAKE UNTIL 129, REFUSED TO GO TO BED, IN & OUT OF HER ROOM, EASILY AGITATED, ANXIOUS BUT REDIRECTABLE. OFFERED ATIVAN PRN BUT KEPT REFUSING DESPITE OF RISKS & BENEFIT EXPLANATIONS, STATED," I AM NOT SICK, I DON'T NEED ANY MEDICINE." PATIENT IS SLEEPING IN BED AT THIS TIME. WILL CONTINUE TO MONITOR FOR SAFETY & BEHAVIOR.
--- NOTE | 2019-08-07 02:45 | NUR ---
GPS RN NOTE PATIENT IS AMBULATING IN THE HALLWAY, OFFERED SLEEPING MEDICINE BUT PT. STATED," I AM NOT SLEEPY, YOU ARE THE ONE WHO NEEDS TO SLEEP" & WALKED AWAY. PATIENT REFUSED TO TAKE RESTORIL DESPITE OF EXPLANATIONS. CONTINUING TO MONITOR CLOSELY.
[2019-08-07] MEDS: DIVALPROEX SODIUM 125 MG CAP.SPRINK PO SCH ×2 (08:00→12:05)
[2019-08-07] MEDS: OLANZAPINE 5 MG/TAB.RAPDIS PO SCH ×4 (08:17→18:17)
[2019-08-07] MEDS: LISINOPRIL (10MG) 10 MG TABLET PO SCH (08:17)
[2019-08-07] MEDS: CARBIDOPA/LEVODOPA 25/100 MG 1 UDTAB PO SCH ×3 (08:17→16:11)
--- NOTE | 2019-08-07 08:17 | NUR ---
PATIENT REFUSED ALL 0900 MEDS
--- NOTE | 2019-08-07 08:27 | NUR ---
PUBLIC GUARDIAN OFFICE: MIS contacted the Public Guardian's Office [phone] and spoke with the [place] on Duty for Unit [address] [place] who stated pt is no longer under Public Guardianship and transferred the call to Worker'S Compensation Claims Examiner Tom, MIS left a voicemail for callback.
--- NOTE | 2019-08-07 08:32 | NUR ---
FAMILY CONTACT: SW contacted pts daughter Farrah [phone] to request LPS CONSERVATOR Paperwork and Detain and Treat, SW left voicemail for callback.
--- NOTE | 2019-08-07 09:00 | NUR ---
FAMILY CONTACT: SW contacted pts daughter Farrah [phone] and left a voicemail for callback.
--- NOTE | 2019-08-07 09:13 | NUR ---
PUBLIC GUARDIAN OFFICE: SW received a voicemail from Tom Coleman, Skin Care Specialist at the Public Guardian's Office [phone] stating Dat Hobbs is not appointed conservator but Daughter Farrah is appointed Successor until May 2020 and should have Letters of Conservatorship and Saha 7 and 8A.
--- NOTE | 2019-08-07 09:15 | NUR ---
[place] [address]: MIS contacted [place] [address] and spoke with Kathy refrigerated cargo clerk [phone] who confirmed pts daughter Farrah is pts LPS Conservator and has conservatorship until May 2020, Kathy will email MIS, orders of conservatorship along with the Saha.
--- NOTE | 2019-08-07 09:28 | NUR ---
[place] [address]: MIS received Order of Conservatorship from Goldie Herndon <[email or web address]> MIS placed in pts chart.
--- NOTE | 2019-08-07 12:00 | NUR ---
FAMILY CONTACT: SW contacted pts daughter Farrah [phone] and left a voicemail for callback.
--- NOTE | 2019-08-07 14:26 | NUR ---
FAMILY CONTACT: SW contacted pts daughter Farrah [phone] and left a voicemail for callback.
[2019-08-07] MEDS: DIVALPROEX SODIUM 500 MG TABLET.DR PO SCH (16:08)
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
[2019-08-07] MEDS ORDERED: OLANZAPINE 10 MG VIAL IM PRN (16:30)
[2019-08-07] MEDS ORDERED: HALOPERIDOL DECANOATE IM 100 MG/ML AMPUL IM ONE (17:00)
[2019-08-07 20:00] VITALS: BP 135/75
[2019-08-07 20:28] VITALS: BP 135/75
[2019-08-07] MEDS: TEMAZEPAM 7.5 MG CAPSULE PO PRN (21:19)
--- NOTE | 2019-08-07 21:22 | NUR ---
PT CHANGED MIND AND DOESN'T WANT SLEEPING PILLS TEMAZEPAM.
[2019-08-08 08:00] VITALS: BP 126/77
[2019-08-08] MEDS: DIVALPROEX SODIUM 125 MG CAP.SPRINK PO SCH ×2 (08:13→12:06)
[2019-08-08] MEDS: LISINOPRIL (10MG) 10 MG TABLET PO SCH (08:13)
[2019-08-08] MEDS: CARBIDOPA/LEVODOPA 25/100 MG 1 UDTAB PO SCH ×3 (08:14→16:08)
[2019-08-08] MEDS: OLANZAPINE 5 MG/TAB.RAPDIS PO SCH ×2 (08:14→16:08)
--- NOTE | 2019-08-08 08:26 | NUR ---
FAMILY CONTACT: SW contacted pts daughter Farrah [phone] and left a voicemail for callback.
--- NOTE | 2019-08-08 08:26 | NUR ---
FAMILY CONTACT: SW contacted pts daughter Liberty [phone] and left a voicemail for callback.
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
--- NOTE | 2019-08-08 15:06 | NUR ---
FAMILY CONTACT: SW received Detain and Treat from pts daughter Farrah [phone] via email on this present day.
[2019-08-08 16:00] VITALS: BP 119/55
[2019-08-08] MEDS: DIVALPROEX SODIUM 500 MG TABLET.DR PO SCH (16:08)
[2019-08-09] MEDS: OLANZAPINE 5 MG/TAB.RAPDIS PO SCH ×2 (08:00→17:25)
[2019-08-09] MEDS: DIVALPROEX SODIUM 125 MG CAP.SPRINK PO SCH ×2 (08:01→13:51)
[2019-08-09] MEDS: CARBIDOPA/LEVODOPA 25/100 MG 1 UDTAB PO SCH ×3 (08:01→17:25)
[2019-08-09] MEDS: LISINOPRIL (10MG) 10 MG TABLET PO SCH (08:03)
[2019-08-09 16:00] VITALS: BP 100/80
[2019-08-09] MEDS: DIVALPROEX SODIUM 500 MG TABLET.DR PO SCH (17:25)
--- NOTE | 2019-08-09 19:16 | NUR ---
GPS RN NOTES: PT REFUSED TO CHECK VITALS. EXPLAIN RISKS AND BENEFITS STILL REFUSED X3. BREATHING EVEN AND UNLABORED. NO S/S OF RESP DISTRESS. CONTINUE TO MONITOR.
[2019-08-10 08:00] VITALS: BP 158/68
[2019-08-10] MEDS: DIVALPROEX SODIUM 125 MG CAP.SPRINK PO SCH ×2 (08:00→12:16)
[2019-08-10] MEDS: OLANZAPINE 5 MG/TAB.RAPDIS PO SCH ×2 (08:00→16:21)
[2019-08-10] MEDS: CARBIDOPA/LEVODOPA 25/100 MG 1 UDTAB PO SCH ×3 (08:00→16:21)
[2019-08-10] MEDS: LISINOPRIL (10MG) 10 MG TABLET PO SCH (08:00)
[2019-08-10] MEDS: ACETAMINOPHEN 325 MG TABLET PO PRN (08:41)
--- NOTE | 2019-08-10 08:41 | NUR ---
RN NOTE- PT C/O HEADACHE. TYLENOL 650 MG GIVEN
[2019-08-10] MEDS: LORAZEPAM 0.5 MG TABLET PO PRN (13:57)
--- NOTE | 2019-08-10 14:00 | NUR ---
RN NOTE- PT W NCREASING AGITATION AND RESTLESSNESS. ATIVAN 0.5 MG GIVEN. MONITORING PT
[2019-08-10 16:00] VITALS: BP 105/60
[2019-08-10] MEDS: DIVALPROEX SODIUM 500 MG TABLET.DR PO SCH (16:20)
--- NOTE | 2019-08-10 16:21 | NUR ---
RN NOTE- PT REFUSING 1700 MEDS. DEPAKOTE, SINEMET AND ZYPREXA. IM ZYPREXA READIED PER ORDERS.
--- NOTE | 2019-08-10 16:35 | NUR ---
RN NOTE- ZYPREXA 10 MG IM GIVEN W SECURITY AND FEMALE RAW MATERIAL PLANNER AT BEDSIDE. TOLERATED WELL.
[2019-08-10 20:42] VITALS: BP 106/60
[2019-08-11] MEDS: DIVALPROEX SODIUM 125 MG CAP.SPRINK PO SCH ×2 (07:35→13:53)
[2019-08-11 08:00] VITALS: BP 129/76
[2019-08-11 08:14] VITALS: BP 129/76
[2019-08-11] MEDS: LISINOPRIL (10MG) 10 MG TABLET PO SCH (08:14)
[2019-08-11] MEDS: OLANZAPINE 5 MG/TAB.RAPDIS PO SCH (08:15)
[2019-08-11] MEDS: CARBIDOPA/LEVODOPA 25/100 MG 1 UDTAB PO SCH ×2 (08:15→13:53)
--- NOTE | 2019-08-11 11:29 | NUR ---
DISCHARGE NOTE: Pt will be discharging at 2:00pm via [facility]UL[facility] to [facility] ([facility]) [address] [place] [address] P: [phone]. Pts daughter/DPMARION Yan [phone] has been notified and agrees with discharge plan. Pts mood is euthymic with congruent affect. Pt denied visual/auditory hallucinations and denied suicidal/homicidal ideation. Pt will be under the care of Psychiatrist: Dr. Sanchez Address: [address] [place] [address] and [place] Slabs: Dr Guerrero Address: [address] [address] [phone]. The multidisciplinary exit care form was done, printed, signed, and given to the patient. Addendum: 08/11/19 at 1131 by TAMAR ABEBE Pts daughter/LPS CONSERVATOR Farrah [phone]
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
[2019-09-06] MEDS ORDERED: HALOPERIDOL DECANOATE IM 100 MG/ML AMPUL IM ONE (09:00)
== END 2019-08-11 14:05 | DRG 885 ==
LOC: GPS 14:44
PROVIDERS: ADMIT Psychiatry & Neurology Psychosomatic Medicine; ATTEND Internal Medicine
DX: F25.0 Schizoaffective disorder, bipolar type (principal); F41.9 Anxiety disorder, unspecified; E03.9 Hypothyroidism, unspecified; F17.210 Nicotine dependence, cigarettes, uncomplicated; G20 Parkinson's disease; I10 Essential (primary) hypertension; E11.9 Type 2 diabetes mellitus without complications; R26.9 Unspecified abnormalities of gait and mobility
CPT/HCPCS: 87081-TC; 97116-TC; 97530-TC; J1200; J1630; J1631; J2060; J3490

== ENCOUNTER 2019-08-14 22:29 | Inpatient (IN) | payer MEDICARE ==
[~2019-08-14] VITALS: Ht 162.6 cm; Wt 80.7 kg
[~2019-08-14 22:29] MED LIST changes: +ACET-868 PO; -ARIP30TA3 PO; -CLON1TAB PO; -DIVA500T2 GT; -LITH600C PO; +LORA-259 PO; +MAG30ORA PO; +MAGN400O6 PO; +OLAN10TA3 PO; -QUET400T PO
--- NOTE | 2019-08-14 23:08 | NUR ---
PT [facility] FROM [facility] FOR PSYCH EVAL S/P AGGRESSIVE BEHAVIOR AND STRIKING STAFF. PLACED ON MONITOR AND PULSE OX. NO ACUTE DISTRESS NOTED. PT CURSING. VSS.
--- NOTE | 2019-08-14 23:10 | NUR ---
PT AAOX2.
[2019-08-14] MEDS ORDERED: HALOPERIDOL LACTATE INJ 5 MG/ML VIAL ONE (23:13)
--- NOTE | 2019-08-14 23:18 | NUR ---
APPLE THINNER AT BEDSIDE FOR LAB
[2019-08-14 23:22] LABS: BASOPHILS % (AUTO) 0.9 % (0.0-2.0); HEMATOCRIT 32 % (33-45); HEMOGLOBIN 10.2 g/dL (11.5-14.8); MEAN CORPUSCULAR HGB CONC 32 g/dl (31.0-36.0); MEAN CORPUSCULAR VOLUME 86 fL (82-100); MONOCYTES # (AUTO) 0.4 /CMM (0.1-1.30); MONOCYTES % (AUTO) 8.2 % (2.0-12.0); NEUTROPHILS # (AUTO) 1.5 /CMM (1.8-8.9); NEUTROPHILS % (AUTO) 29.9 % (43.0-81.0); PLATELET COUNT (AUTO) 285 /CMM (150-450); WHITE BLOOD COUNT (AUTO) 5.1 K/uL (4.3-11.0)
[2019-08-14 23:23] LABS: APPEARANCE,URINE Clear (CLEAR); BILIRUBIN,URINE Negative (NEGATIVE); BLOOD, URINE Negative Ery/uL (NEGATIVE); COLOR,URINE Yellow (YELLOW); KETONES,URINE Trace (NEGATIVE); LEUKOCYTE ESTERASE ,URINE Negative (NEGATIVE); NITRITE, URINE Negative (NEGATIVE); PROTEIN,URINE Negative (NEGATIVE); UGLUCOSE Negative (NEGATIVE); UROBILINOGEN,URINE 0.2 EU/dL (0.2)
[2019-08-14] MEDS ORDERED: HALOPERIDOL LACTATE INJ 5 MG/ML VIAL IM ONE (23:30)
[2019-08-14 23:32] LABS: CALCIUM, SERUM 8.5 mg/dL (8.5-10.1); CARBON DIOXIDE 28 mmol/L (21-32); CHLORIDE 103 mmol/L (98-107); CREATININE 0.6 mg/dL (0.6-1.3); GLUCOSE 174 mg/dL (74-106); POTASSIUM 3.8 mmol/L (3.5-5.1); SODIUM SERUM 140 mmol/L (136-145); UREA NITROGEN, BLOOD 17 mg/dL (7-18)
[2019-08-14 23:37] LABS: ALANINE AMINOTRANSFERASE 27 U/L (12-78); ALBUMIN 3.4 g/dL (3.4-5.0); ALCOHOL, BLOOD < 3 mg/dL (0-0); ALKALINE PHOSPHATASE 73 U/L (46-116); ASPARTATE AMINOTRANSFERASE 13 U/L (15-37); BILIRUBIN,TOTAL 0.2 mg/dL (0.2-1.0); TOTAL PROTEIN, SERUM 7.2 g/dL (6.4-8.2)
[2019-08-14 23:40] LABS: ACETAMINOPHEN 0 ug/ml (10-30); SALICYLATE 1.4 mg/dL (2.8-20.0)
[2019-08-15] MEDS ORDERED: HALOPERIDOL LACTATE INJ 5 MG/ML VIAL ONE (00:06)
[2019-08-15] MEDS ORDERED: HALOPERIDOL LACTATE INJ 5 MG/ML VIAL IM ONE ×2 (00:30→13:00)
[2019-08-15] MEDS ORDERED: MIDAZOLAM HCL 2 MG/2ML VIAL ONE (01:44)
--- NOTE | 2019-08-15 01:59 | NUR ---
REPORT GIVEN TO RONDA WEST FOR [facility]ISCO
[2019-08-15] MEDS ORDERED: MIDAZOLAM HCL 2 MG/2ML VIAL IM ONE (02:00)
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
[2019-08-15] MEDS ORDERED: MAGNESIUM HYDROXIDE 30 ML UDC PO PRN (02:30)
[2019-08-15] MEDS ORDERED: ACETAMINOPHEN 325 MG TABLET PO PRN (02:30)
[2019-08-15] MEDS ORDERED: BLOOD SUGAR DIAGNOSTIC 1 EACH STRIP IN ONE (02:30)
[2019-08-15] MEDS ORDERED: TEMAZEPAM 7.5 MG CAPSULE PO PRN (02:30)
[2019-08-15] MEDS ORDERED: MAG HYDROX/AL HYDROX/SIMETH 30 ML UDC PO PRN (02:30)
--- NOTE | 2019-08-15 03:24 | NUR ---
GPS RN NOTES SLEEPING AT THIS TIME.
--- NOTE | 2019-08-15 06:00 | NUR ---
GPS RN NOTES REFUSED PICTURE ON FACE FOR CHART RECORD AND REFUSED VITAL SIGNS.
--- NOTE | 2019-08-15 06:11 | NUR ---
GPS RN NOTES ATTEMPTED BY CHARGE NURSE NOVEM RN TO [facility] FAMILY MEMBER FOR ADMISSION,NO ANSWER,LEAVED MESSAGE ON VOICEMAIL.
[2019-08-15 08:00] VITALS: BP 119/88
--- NOTE | 2019-08-15 08:30 | NUR ---
FACILITY CONTACT: SW received a call from Aishwarya clinical pharmacy coordinator at [facility] Address: [address], [place] [address] stating pt cannot return to their facility due to her aggressive behavior.
[2019-08-15] MEDS: BENZTROPINE MESYLATE (1 MG) 1 MG TABLET PO SCH ×3 (08:33→17:00)
[2019-08-15] MEDS: LISINOPRIL (10MG) 10 MG TABLET PO SCH ×2 (08:34→08:46)
[2019-08-15] MEDS: CARBIDOPA/LEVODOPA 25/100 MG 1 UDTAB PO SCH ×4 (08:34→17:00)
[2019-08-15] MEDS: LORAZEPAM 0.5 MG TABLET PO PRN (08:36)
[2019-08-15] MEDS ORDERED: diphenhydrAMINE HCL 50 MG/ML VIAL IM ONE (09:00)
[2019-08-15] MEDS ORDERED: OLANZAPINE 10 MG VIAL IM ONE (09:00)
[2019-08-15] MEDS ORDERED: LORAZEPAM INJ 2 MG/ML VIAL IM ONE (09:00)
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
--- NOTE | 2019-08-15 10:00 | NUR ---
FAMILY CONTACT: SW contacted pts Daughter/LPS conservator Farrah [phone] who wishes for pt to be transferred to a prison psychiatric facility. SW informed her that due to pt currently being in a acute psych hospital SW is unable to transfer pt to another hospital. Farrah understood and stated that no one is wiling to help her and stated that she does not want pt placed at another SNF due to the nursing homes not being able to manage her behavior. SW stated that there was no other option unless pt goes to a board and care which daughter is not willing to pay for. She also emailed detain and treat and SW placed it in pts chart. SW will continue to work with daughter for a proper and safe discharge.
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
--- NOTE | 2019-08-15 10:48 | NUR ---
INITIAL DISCHARGE PLAN: Pt will need SNF placement as SW recived a call from Aishwarya, group rooms coordinator at [facility] Address: [address], [place] [address] stating pt cannot return to their facility due to her aggressive behavior. MIS contacted pts Daughter/LPS conservator Farrah [phone] who wishes for pt to be transferred to a [facility] facility. MIS informed her that due to pt currently being in a acute psych hospital SW is unable to transfer pt to another hospital. SW will explore SNF placement. MIS will help form a safe and proper discharge in collaboration with .
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
--- NOTE | 2019-08-15 12:45 | NUR ---
RN NOTE- THORVANESA NOT AVAILABLE VIA PHARMACY. DR LLANOS PHONED HE IS DIRECTOR MEDICARE SALES FOR DR ARANDA. EXPLAINED SITUATION, PREVIOUS IM INJECTION FOR BEHAVIORS AND SITUATION. DR LLANOS ORDERED HALDOL 5 MG IM , ATIVAN 2 MG IM AND BENADRYL 50 MG IM FOR ONE DOSE. ORDERS COMPLIED WITH. CHECKING ON PT, FOUND HER IN ROOM NOW, SLEEPING AND QUIET. WILL CONTINUE TO MONITOR PT, BEHAVIORS AND SITUATION.
[2019-08-15] MEDS ORDERED: diphenhydrAMINE HCL 50 MG/ML VIAL IM PRN (13:00)
[2019-08-15] MEDS ORDERED: LORAZEPAM INJ 2 MG/ML VIAL IM PRN (13:00)
[2019-08-15] MEDS: OLANZAPINE 10 MG TABLET PO SCH (17:00)
[2019-08-16] MEDS: OLANZAPINE 10 MG TABLET PO SCH ×2 (09:00→17:53)
[2019-08-16] MEDS: LISINOPRIL (10MG) 10 MG TABLET PO SCH (10:55)
[2019-08-16] MEDS: CARBIDOPA/LEVODOPA 25/100 MG 1 UDTAB PO SCH ×3 (10:55→17:30)
[2019-08-16] MEDS: BENZTROPINE MESYLATE (1 MG) 1 MG TABLET PO SCH ×2 (10:55→17:29)
[2019-08-16] MEDS ORDERED: HALOPERIDOL LACTATE INJ 5 MG/ML VIAL IM ONE (11:30)
[2019-08-16] MEDS ORDERED: LORAZEPAM INJ 2 MG/ML VIAL IM ONE (11:30)
[2019-08-16] MEDS ORDERED: diphenhydrAMINE HCL 50 MG/ML VIAL IM ONE (11:30)
--- NOTE | 2019-08-16 11:30 | NUR ---
Pt. is highly agitated, irritable, aggressive and throwing the box with tubes of the control panel tester in the hallway. Dr. Banda in the unit and ordered Ativan 2 mg IM, Haldol 5 mg IM and Benadryl 50 mg IM. Addendum: 08/16/19 at 1304 by REMI AHUMADA RN Called Farrah Valladares and left a message.
--- NOTE | 2019-08-16 14:53 | NUR ---
Patient is much calmer and cooperative since IM earlier this morning, she slept for a couple of hours, ate lunch without incident. She continues to pace but is redirectable, noted to have moderate uncontrollable shakiness in both arms. Pleasant on approach, denies auditory/visual hallucinations, will monitor for safety and changes in behavior.
[2019-08-16 20:55] VITALS: BP 124/81
--- NOTE | 2019-08-17 07:23 | NUR ---
RN NOTES: PT. REFUSED AM LABS , ENCOURAGED X3 STILL REFUSED.
[2019-08-17] MEDS: LORAZEPAM 0.5 MG TABLET PO PRN (08:01)
[2019-08-17] MEDS: LISINOPRIL (10MG) 10 MG TABLET PO SCH (08:01)
[2019-08-17] MEDS: OLANZAPINE 10 MG TABLET PO SCH (08:01)
[2019-08-17] MEDS: BENZTROPINE MESYLATE (1 MG) 1 MG TABLET PO SCH ×2 (08:01→16:20)
[2019-08-17] MEDS: CARBIDOPA/LEVODOPA 25/100 MG 1 UDTAB PO SCH ×3 (08:01→16:20)
[2019-08-17] MEDS: LORAZEPAM 1 MG TABLET PO PRN ×3 (11:47→20:53)
--- NOTE | 2019-08-17 11:50 | NUR ---
GPS RN NOTE: PT IN THE HALLWAY ANXIOUS,GETTING AGITATED, ATIVAN 2 MG PO PRN GIVEN PER MD ORDER WILL CONTINUE MONITORING.
--- NOTE | 2019-08-17 16:36 | NUR ---
GPS RN NOTE: PT IN THE ROOM ANXIOUS, ATIVAN 2 MG PO PRN GIVEN PER MD ORDER WILL CONTINUE MONITORING.
[2019-08-17] MEDS ORDERED: OLANZAPINE 2.5 MG TABLET PO SCH (17:00)
[2019-08-17 19:59] VITALS: BP 130/81
--- NOTE | 2019-08-17 20:55 | NUR ---
RN NOTES: PT.C/O FEELING ANXIOUS , PARNOID ,RESTLESS ATIVAN 2 MG PO PRN GIVEN PER PT. REQUEST , WILL CONTINUE TO MONITOR.
[2019-08-18] MEDS: LORAZEPAM 1 MG TABLET PO PRN ×2 (07:59→12:56)
[2019-08-18 08:00] VITALS: BP 116/84
--- NOTE | 2019-08-18 08:03 | NUR ---
RN NOTE- PT W AGITATION. ATIVAN 2 MG GIVEN AT THIS TIME.
[2019-08-18] MEDS: LISINOPRIL (10MG) 10 MG TABLET PO SCH (08:53)
[2019-08-18] MEDS: CARBIDOPA/LEVODOPA 25/100 MG 1 UDTAB PO SCH ×3 (08:53→17:00)
[2019-08-18] MEDS: BENZTROPINE MESYLATE (1 MG) 1 MG TABLET PO SCH ×2 (08:58→17:00)
[2019-08-18] MEDS: OLANZAPINE 5 MG TABLET PO SCH ×2 (09:23→17:46)
--- NOTE | 2019-08-18 12:58 | NUR ---
RN NOTE- PT W AGITATION, YELLING LOUDLY. ATIVAN GIVEN AT THIS TIME.
[2019-08-18 16:00] VITALS: BP 136/76
[2019-08-18 20:34] VITALS: BP 148/89
[2019-08-19 08:00] VITALS: BP 139/68
[2019-08-19] MEDS: OLANZAPINE 5 MG TABLET PO SCH ×2 (08:13→17:00)
[2019-08-19] MEDS: CARBIDOPA/LEVODOPA 25/100 MG 1 UDTAB PO SCH ×3 (08:14→17:00)
[2019-08-19] MEDS: BENZTROPINE MESYLATE (1 MG) 1 MG TABLET PO SCH ×2 (08:14→17:00)
[2019-08-19] MEDS: LORAZEPAM 1 MG TABLET PO PRN ×2 (08:14→18:33)
[2019-08-19] MEDS: LISINOPRIL (10MG) 10 MG TABLET PO SCH (08:15)
--- NOTE | 2019-08-19 08:15 | NUR ---
RN NOTE:PATIENT AGITATED ,YELLING MEDICATED WITH ATIVAN 2MG PO ,WILL CONTINUE TO MONITOR .
--- NOTE | 2019-08-19 12:28 | NUR ---
SNF REFERRAL: MIS faxed SNF referral to [facility] ([facility]) [address] [address] for review.
--- NOTE | 2019-08-19 13:44 | NUR ---
SNF REFERRAL: SW received a call from Guru coordinator of library services from [facility] ([facility]) [address] [address] stating pt has been accepted to the facility.
--- NOTE | 2019-08-19 15:20 | NUR ---
GROUP NOTE: SW encouraged pt to attend group on this present day discussing "suicidal urges." Pt is not appropriate for group due to her current psychotic symptoms and inappropriate behavior. Pt unable to be redirected and sit in a group setting.
[2019-08-19 16:00] VITALS: BP 106/74
--- NOTE | 2019-08-19 18:38 | NUR ---
RN NOTE:PATIENT REFUSED ZYPREXA ,MEDICATED WITH ATIVAN 2MG FOR ANXIETY WILL CONTINU TO MONITOR .
[2019-08-19 20:24] VITALS: BP 114/69
[2019-08-20 08:00] VITALS: BP 113/70
[2019-08-20] MEDS: OLANZAPINE 5 MG TABLET PO SCH ×2 (08:41→17:34)
[2019-08-20] MEDS: LISINOPRIL (10MG) 10 MG TABLET PO SCH (08:42)
[2019-08-20] MEDS: BENZTROPINE MESYLATE (1 MG) 1 MG TABLET PO SCH ×2 (08:42→17:34)
[2019-08-20] MEDS: CARBIDOPA/LEVODOPA 25/100 MG 1 UDTAB PO SCH ×3 (08:42→17:34)
--- NOTE | 2019-08-20 15:01 | NUR ---
FAMILY CONTACT: SW contacted pts Daughter/LPS conservator Farrah [phone] via email ( ) and informed her pt will be discharged on Sunday08/22/19 to [facility].
[2019-08-20 16:00] VITALS: BP 108/67
[2019-08-20] MEDS: LORAZEPAM 1 MG TABLET PO PRN (18:06)
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
--- NOTE | 2019-08-20 20:29 | NUR ---
RN NOTES: PT. REFUSING TO ASSESS RIGHT HAND AND PHOTO TO BE TAKEN ,STATING THAT "I AM FINE"
--- NOTE | 2019-08-20 20:37 | NUR ---
RN NOTES: PT. REFUSING TO ASSESS RIGHT HAND AND PHOTO TO BE TAKEN ,STATING THAT "I AM FINE", ENCOURAGED X3 EXPLINED RISKS BENEFITS, AND STRONGLY REFUSED, PT. BEHAVIOUR VERY UNCOOERTIVE AND UNPREDICTABLE, WILL CONTINUITY WITH CARE.
--- NOTE | 2019-08-21 07:11 | NUR ---
RN NOTES: PT. REFUSING TO ASSESS RIGHT HAND AND PHOTO TO BE TAKEN ,STATING THAT I CAN TAKING CARE MY SELF, ENCOURAGED X3 EXPLINED RISKS BENEFITS, AND STRONGLY REFUSED, PT. BEHAVIOUR VERY UNCOOERTIVE ,IN DURING SHIFT DENIES ANY PAIN DISCOMFORT AT THIS TIME, WILL CONTINUITY WITH CARE.
[2019-08-21] MEDS: BENZTROPINE MESYLATE (1 MG) 1 MG TABLET PO SCH ×2 (08:19→17:51)
[2019-08-21] MEDS: CARBIDOPA/LEVODOPA 25/100 MG 1 UDTAB PO SCH ×4 (08:19→17:50)
[2019-08-21] MEDS: OLANZAPINE 5 MG TABLET PO SCH ×2 (08:20→17:50)
[2019-08-21] MEDS: LISINOPRIL (10MG) 10 MG TABLET PO SCH (08:29)
--- NOTE | 2019-08-21 08:30 | NUR ---
GPS RN NOTE: PATIENT REFUSED BLOOD PRESSURE MEASUREMENT THIS AM AND LISINOPRIL WAS OMITTED
--- NOTE | 2019-08-21 13:29 | NUR ---
FAMILY CONTACT: SW contacted pts Daughter/LPS conservator Farrah [phone] and left a voicemail informing her of pts discharge tomorrow 08/22/19 to [facility]. SW requested a callback.
--- NOTE | 2019-08-21 13:42 | NUR ---
GPS RN NOTE 1300 MEDICATION REFUSED STATING THAT SHE DOES NOT NEED
[2019-08-21 20:00] VITALS: BP 111/68
[2019-08-22 08:00] VITALS: BP 142/82
[2019-08-22] MEDS: LISINOPRIL (10MG) 10 MG TABLET PO SCH ×2 (08:10→08:24)
[2019-08-22] MEDS: BENZTROPINE MESYLATE (1 MG) 1 MG TABLET PO SCH ×2 (08:10→08:24)
[2019-08-22] MEDS: CARBIDOPA/LEVODOPA 25/100 MG 1 UDTAB PO SCH ×3 (08:11→13:09)
[2019-08-22] MEDS: OLANZAPINE 5 MG TABLET PO SCH ×2 (08:11→08:24)
[2019-08-22 08:24] VITALS: BP 142/82
--- NOTE | 2019-08-22 08:39 | NUR ---
FAMILY CONTACT: SW received an email from pts Daughter/LPS conservator Farrah [phone] ([email or web address]) stating she agrees with pts discharge plan.
--- NOTE | 2019-08-22 10:21 | NUR ---
Dr. Banda gave an order to D/C to [facility], to continue same meds including prn and to follow up with psych and medical doctors.
--- NOTE | 2019-08-22 10:31 | NUR ---
DISCHARGE NOTE: Pt will be discharged at 1:00pm via AMBULNZ to [facility] ([facility]) [address] [[email or web address] [address] . Pts Daughter/LPS conservator Farrah [phone] has been notified and agrees with discharge. Pts mood is euthymic with congruent affct. Pt denied visual/auditory hallucinations and denied suicidal/homicidal ideation. Pt will be under the care of Psychiatrist: Dr. Erica Meeks [address] [phone] and Metal Room Dental Technician: Dr. Santi Jarrett [address] [phone] . The multidisciplinary exit care form was done, printed, signed, and given to the patient.
--- NOTE | 2019-08-22 11:42 | NUR ---
Wanda Ferrara made aware of the discharge and reconciled the meds.
--- NOTE | 2019-08-22 14:47 | NUR ---
RN NOTE- DC NOTE- PT DC AT THIS TIME VIA BILLY WITH AMBULANCE STAFF. VS STABLE, DENIES SI HI AH VH, ALERT ORIENTED TO PERSON PLACE. CALM DIRECTABLE. PT HAD NO SKIN ISSUES SO NO PHOTOGRAPHS NEEDED. ID WRISTBAND REMOVED. DC PAPERWORK REVIEWED W AMBULANCE STAFF W VERBALIZED UNDERSTANDING. NO VALUABLE BROUGHT TO HOSPITAL. ESCORTED OFF UNIT BY STAFF.
== END 2019-08-22 14:45 | DRG 885 ==
LOC: ER 22:32 → GPS 08-15 01:42
PROVIDERS: ADMIT Psychiatry & Neurology Psychiatry; ATTEND Internal Medicine
DX: F29 Unspecified psychosis not due to a substance or known physiological condition (principal); I10 Essential (primary) hypertension; E03.9 Hypothyroidism, unspecified; F17.210 Nicotine dependence, cigarettes, uncomplicated; G20 Parkinson's disease; R26.81 Unsteadiness on feet; F25.9 Schizoaffective disorder, unspecified; F31.9 Bipolar disorder, unspecified; Z98.890 Other specified postprocedural states
CPT/HCPCS: 36415; 73130-TC; 80048-TC; 80076-TC; 80305; 81000-TC; 85025-TC; 87081-TC; G0480; J1200; J1630; J2060; J2250; J3230; J3490